=== PATIENT | male | born 1945 | race Caucasian/White ===

== ENCOUNTER → 2019-03-02 | Outpatient (CLI) | payer MEDICARE, BC ==
[~2019-03-02] MED LIST: AMARYL4 MG PO; ASPIRIN E.C. 8181 MG PO; EFFIENT10 MG PO; IMDUR 60MG60 MG/TAB PO; JANUVIA 100MG100 MG PO; LEVEMIR FLEX100 U/ML SQ; LIPITOR 40MG TA40 MG PO; MIRAPEX0.25 MG PO; NITROSTAT0.4 MG/TAB SL; PROSCAR 5MG5 MG PO; PROTONIX 40MG T40 MG PO; RANEXA 500MG T500 MG PO; TYLENOL 500MG500 MG PO; ZIAC 5/6.25MG T1 TAB PO; ZOCOR 40MG40 MG PO
== END ==
LOC: COL.PUL 08:00
DX: Z01.810 Encounter for preprocedural cardiovascular examination (principal); I25.10 Atherosclerotic heart disease of native coronary artery without angina pectoris

== ENCOUNTER → 2019-04-18 | Outpatient (CLI) | payer MEDICARE, BC | LOC: COL.VAS 09:39 | DX: I82.469 Acute embolism and thrombosis of unspecified calf muscular vein (principal) ==

== ENCOUNTER 2019-08-24 13:49 | Outpatient (RCR) | payer MEDICARE, BC | END 2019-10-21 | disposition still patient (30) | LOC: COL.CR | DX: Z48.812 Encounter for surgical aftercare following surgery on the circulatory system (principal); Z95.1 Presence of aortocoronary bypass graft; I25.10 Atherosclerotic heart disease of native coronary artery without angina pectoris ==

== ENCOUNTER 2019-11-23 12:49 | Outpatient (RCR) | payer SELFPAY | END 2019-11-29 | disposition home or self-care (01) | LOC: COL.CR | DX: Z02.89 Encounter for other administrative examinations (principal) ==

== ENCOUNTER 2020-02-11 15:08 | Outpatient (RCR) | payer SELFPAY | END 2020-02-28 | disposition home or self-care (01) | LOC: COL.CR | DX: Z02.89 Encounter for other administrative examinations (principal) ==

== ENCOUNTER 2020-06-11 17:05 | Outpatient (RCR) | payer SELFPAY | END 2020-06-12 | disposition home or self-care (01) | LOC: COL.CR | DX: Z02.89 Encounter for other administrative examinations (principal) ==

== ENCOUNTER 2020-09-15 15:25 | Outpatient (RCR) | payer SELFPAY | END 2020-09-16 | disposition home or self-care (01) | LOC: COL.CR | DX: Z02.89 Encounter for other administrative examinations (principal) ==

== ENCOUNTER 2021-06-12 10:16 | Outpatient (RCR) | payer SELFPAY | END 2021-06-13 | LOC: COL.CR | DX: Z29.8 Encounter for other specified prophylactic measures (principal) ==

== ENCOUNTER 2021-07-08 11:49 | Outpatient (RCR) | payer SELFPAY | END 2021-07-14 | LOC: COL.CR | DX: Z29.8 Encounter for other specified prophylactic measures (principal) ==

== ENCOUNTER 2021-07-15 02:23 | Outpatient (RCR) | payer SELFPAY | END 2021-08-13 | LOC: COL.CR | DX: Z29.8 Encounter for other specified prophylactic measures (principal) ==

== ENCOUNTER 2021-08-14 15:04 | Outpatient (RCR) | payer SELFPAY | END 2021-09-13 | LOC: COL.CR | DX: Z29.8 Encounter for other specified prophylactic measures (principal) ==

== ENCOUNTER 2021-09-14 03:42 | Outpatient (RCR) | payer SELFPAY | END 2021-10-14 | LOC: COL.CR | DX: Z12.31 Encounter for screening mammogram for malignant neoplasm of breast (principal) ==

== ENCOUNTER 2023-10-07 09:35 | Emergency (ER) | payer MEDICARE, BC ==
[~2023-10-07] VITALS: Ht 172.7 cm; Wt 95.5 kg
[~2023-10-07 09:35] MED LIST changes: +CEPHALEXIN500 M1 PO; +FLOMAX 0.40.4 MG/CAP PO; +GLUCOPHAGE XR500 M1 PO; +HCTZ 25MG TAB25 MG PO; +HYZAAR 50-12.1 UDTAB PO; +INSULIN AS100 UNIT/2 SQ; +JARDIANCE25 PO; +LASIX 40MG TABL40 MG PO; +LEVEMIR100 U/ML SQ; +MIRAPEX 1MG PO; +NOVOLIN R100 U/ML SQ; +OZEMPIC; +PRAVACHOL 20MG20 MG PO; +SEMGLEE (Y100 UNIT/2 SQ; +TOPROL XL 25MG25 MG PO; +ZEBETA 5MG5 MG PO; +ZETIA 10MG TAB10 MG PO
[2023-10-07 09:42] VITALS: TEMP 97.8
[2023-10-07 10:14] LABS: BASO # 0.1 K/mm3 (0.0-0.2); BASO % 0.6 % (0.0-2.0); EOS # 0.5 K/mm3 (0.0-0.7); GRAN # 6.4 K/mm3 (1.4-6.5); GRAN % 71.4 % (42.2-75.2); HEMATOCRIT 51.7 % (42.0-52.0); HEMOGLOBIN 16.8 g/dl (13.5-18.0); LYMPH # 1.3 K/mm3 (1.2-3.4); MEAN CELL VOLUME 92 fl (80.0-100.0); MEAN CORPUSCULAR HEMOGLOBIN 30 pg (27-31); MEAN CORPUSCULAR HGB CONC 33 g/dl (33.0-37.0); MEAN PLATELET VOLUME 11.3 fl (7.4-10.4); MONO # 0.7 K/mm3 (0.1-0.6); MONO % 7.6 % (1.7-9.3); PLATELET COUNT 176 K/mm3 (130-400); RED BLOOD COUNT 5.61 M/mm3 (4.20-5.60); REDCELL DISTRIBUTION WIDTH-CV 13.4 % (11.5-14.5)
[2023-10-07] MEDS ORDERED: NS 1,000 ML IV ONE (10:15)
[2023-10-07 10:20] LABS: INR 1.1 (0.8-3.0); PROTHROMBIN TIME 12.3 SECONDS (9.7-12.8)
[2023-10-07 10:25] LABS: ALBUMIN 3.4 g/dL (3.4-4.8); BILIRUBIN,TOTAL 0.7 mg/dL (0.2-1.2); C-REACTIVE PROTEIN 0.99 mg/dL (0.00-0.50); CALCIUM 9.6 mg/dL (8.4-10.2); CREATININE, serum 1.79 mg/dL (0.72-1.25); POTASSIUM 4.3 mEq/L (3.5-4.5); TOTAL PROTEIN 7.7 g/dl (6.2-8.1)
[2023-10-07] MEDS ORDERED: Erythromycin 0.5% Ophth Oint 3.5 GM TUBE OP ONE (12:15)
[2023-10-07 13:01] VITALS: BP 121/70; PULSE 88
== END 2023-10-07 13:05 | disposition home or self-care (01) ==
LOC: COL.ER 09:35
PROVIDERS: Emergency Medicine
DX: G51.0 Bell's palsy (principal); H04.121 Dry eye syndrome of right lacrimal gland
CPT/HCPCS: J7030